=== PATIENT | male | born 1965 | race Caucasian/White ===

== ENCOUNTER 2017-11-03 09:17 | Emergency (ER) | payer SELFPAY ==
[2017-11-03] MEDS: ORPHENADRINE CITRATE 60 MG/2 ML VIAL. IM (09:43)
[2017-11-03] MEDS: KETOROLAC 60 MG/2 ML INJ. IM (09:44)
== END 2017-11-03 10:15 | disposition home or self-care (01) ==
LOC: ER 09:17
DX: M54.32 Sciatica, left side (principal); J43.9 Emphysema, unspecified; Z87.01 Personal history of pneumonia (recurrent)
CPT/HCPCS: 96372; 99284-25; J1885; J2360

== ENCOUNTER 2018-03-18 12:25 | Emergency (ER) | payer SELFPAY ==
[2018-03-18] MEDS: LIDOCAINE WITH 8.4% SOD BICARB 3 ML DISP.SYRIN. INJ (13:13)
[2018-03-18] MEDS: DIPHTH,PERTUSS(ACELL),TET TOX 0.5 ML DISP.SYRIN. VAX IM (13:14)
== END 2018-03-18 13:54 | disposition home or self-care (01) ==
LOC: ER 12:25
DX: S61.412A Laceration without foreign body of left hand, initial encounter (principal); W26.9XXA Contact with unspecified sharp object(s), initial encounter; Y93.89 Activity, other specified; Y99.8 Other external cause status; Y92.89 Other specified places as the place of occurrence of the external cause
CPT/HCPCS: 12002; 90471; 90472; 90715; 99283-25

== ENCOUNTER 2018-08-20 09:38 | Inpatient (IN) | payer SELFPAY ==
[~2018-08-20] VITALS: Ht 182.9 cm; Wt 65.8 kg
[~2018-08-20 09:38] MED LIST: ALBU2.5V14 NEB; AMOX500T PO; HYDR-971 PO; MOME13HF2 IH; PRED-220 PO; SULF1TAB24 PO; VENTOLIN HFA18 GM INH
[2018-08-20] MEDS ORDERED: IV NORMAL SALINE 1000ML BAG 1,000 ML IV ONE (09:45)
[2018-08-20] MEDS ORDERED: ALBUTEROL SULFATE 2.5 MG/3 ML NEBU. CONT NEB ONE (09:45)
[2018-08-20] MEDS ORDERED: methylPREDNISolone SOD SUCC PF 125 MG/2 ML VIAL. IV ONE ×2 (09:45→18:30)
--- NOTE | 2018-08-20 10:07 | RAD ---
Portable chest, 08/20/2018: HISTORY: Shortness of breath, COPD Comparison is made to a study from 07/25/2016. The heart size is normal. There are mild scattered parenchymal scars. No acute infiltrate is seen. There is no evidence of pleural fluid or pneumothorax. IMPRESSION: No acute cardiopulmonary abnormality is detected. Electronically signed by: Ba Jara MD (08/20/2018 10:03 AM) [facility]
--- NOTE | 2018-08-20 10:11 | EKG ---
[facility] [address] [place] [address] Test Date: 2018-08-20 Test Time: 09:44:17 Pat Name: KATIE HERNANDEZ Department: Room: Gender: M Endoscopy Tech: : 1965 Requested By: CARMINA RYAN Order Number: [id number] Reading MD: Kendell Ratliff MD Measurements Intervals [place] Rate: 79 P: -45 FL: 98 QRS: 77 QRSD: 92 T: 41 QT: 376 QTc: 432 Interpretive Statements SINUS RHYTHM SHORT FL INTERVAL Electronically Signed On 08-22-2018 9:40:49 CDT by Kendell Ratliff MD
[2018-08-20 10:12] LABS: BASO % 0 % (0-3); EOS # 0.4 x10^3/uL (0.0-0.7); EOS % 5 % (0-3); HEMATOCRIT 43.1 % (39.0-53.0); HEMOGLOBIN 15.2 g/dL (13.0-17.5); LYMPH # 0.9 x10^3/uL (1.0-4.8); LYMPH % 12 % (24-48); MEAN CORPUSCULAR HEMOGLOBIN 31 pg (25-35); MEAN CORPUSCULAR HGB CONC 35 g/dL (31-37); MEAN CORPUSCULAR VOLUME 89 fL (79-100); MONO # 0.9 x10^3/uL (0.0-1.1); MONO % 12 % (0-9); NEUT # 5.1 x10^3uL (1.8-7.7); NEUT % 70 % (31-73); PLATELET COUNT 217 x10^3/uL (140-400); RED BLOOD COUNT 4.86 x10^6/uL (4.30-5.70); RED CELL DISTRIBUTION WIDTH 13.5 % (11.5-14.5); WHITE BLOOD COUNT 7.2 x10^3/uL (4.0-11.0)
[2018-08-20 10:21] LABS: CREATININE 1.1 mg/dL (0.7-1.3); GFR 69.5; POTASSIUM 3.7 mmol/L (3.5-5.1)
[2018-08-20 10:27] LABS: ALBUMIN 3.6 g/dL (3.4-5.0); ALBUMIN/GLOBULIN RATIO 1.1 (1.0-1.7); TOTAL BILIRUBIN 0.8 mg/dL (0.2-1.0); TOTAL PROTEIN 6.8 g/dL (6.4-8.2)
[2018-08-20 10:37] LABS: BASE EXCESS COOX 1 mmol/L (-3-3); HCO3 COOX 24 mmol/L (21-28); METHEMOGLOBIN 0.4 % (0.0-1.9); PCO2 COOX 33 mmHg (35-46); PO2 COOX 82 mmHg (75-108); SAT O2 COOX 97 % (92-99)
[2018-08-20 10:56] LABS: INFLUENZA A PATIENT NEGATIVE (NEGATIVE); INFLUENZA B PATIENT NEGATIVE (NEGATIVE)
[2018-08-20] MEDS ORDERED: levOFLOXacin PER PHARMACY. MC PRN (11:45)
[2018-08-20] MEDS ORDERED: IPRATRPIUM/ALBUTEROL 0.5/2.5MG 3 ML NEBU. NEB ONE (12:00)
[2018-08-20 13:22] LABS: BILIRUBIN,URINE NEGATIVE (NEG); CLARITY,URINE CLEAR; COLOR,URINE YELLOW; NITRITE,URINE NEGATIVE (NEG); PROTEIN,URINE NEGATIVE (NEG-TRACE)
[2018-08-20 13:23] LABS: BACTERIA,URINE 0 /HPF (0-FEW); RBC,URINE OCC /HPF (0-2); SQUAMOUS EPITHELIAL CELL,UR FEW /LPF; WBC,URINE OCC /HPF (0-4)
[2018-08-20 15:00] VITALS: BP 114/79
--- NOTE | 2018-08-20 15:42 | PHYS DOC ---
Past Medical History Past Medical History: COPD, Pneumonia, Other Additional Past Medical Histor: chest pain,emphysema Past Surgical History: Other Additional Past Surgical Histo: hernia, left finger amputation Alcohol Use: Rarely Drug Use: None Adult General Chief Complaint Chief Complaint: SHORTNESS OF BREATH HPI HPI Patient is a 53 year old male who presents with shortness of air that has been worsening over the past week. The patient came in with significant respiratory distress. He does have history of COPD. He had used his at home medications with no relief. He denies chest pain but does state that he has been febrile at home. Review of Systems Review of Systems Constitutional: See history of present illness Eyes: Denies change in visual acuity, redness, or eye pain [] HENT: Denies nasal congestion or sore throat [] Respiratory: See history of present illness Cardiovascular: No additional information not addressed in HPI [] GI: Denies abdominal pain, nausea, vomiting, bloody stools or diarrhea [] : Denies dysuria or hematuria [] Musculoskeletal: Denies back pain or joint pain [] Integument: Denies rash or skin lesions [] Neurologic: Denies headache, focal weakness or sensory changes [] Endocrine: Denies polyuria or polydipsia [] All other systems were reviewed and found to be within normal limits, except as documented in this note. Current Medications Current Medications Current Medications Medications (Trade) Dose Ordered Sig/Dorothea Start Time Stop Time Status Last Admin Dose Admin Albuterol Sulfate (Ventolin Neb Soln) 10 mg 1X ONCE 08/20/18 09:45 08/20/18 09:51 DC 08/20/18 10:08 10 MG Albuterol/ Ipratropium (Duoneb) 3 ml 1X ONCE 08/20/18 12:00 08/20/18 12:01 DC 08/20/18 11:56 3 ML Levofloxacin/ Dextrose 100 ml @ 100 mls/hr Q24H 08/20/18 12:00 08/20/18 11:48 100 MLS/HR Levofloxacin/ Dextrose (Levaquin Per Pharmacy) 1 each PRN DAILY PRN 08/20/18 11:45 Methylprednisolone Sodium Succinate (SOLU-Medrol 125MG VIAL) 125 mg 1X ONCE 08/20/18 09:45 08/20/18 09:51 DC 08/20/18 10:12 125 MG Sodium Chloride 1,000 ml @ 1,000 mls/hr 1X ONCE 08/20/18 09:45 08/20/18 10:44 DC 08/20/18 10:12 1,000 MLS/HR Allergies Allergies Allergies Coded Allergies Type Severity Reaction Last Updated Verified No Known Drug Allergies 12/22/14 No Physical Exam Physical Exam Constitutional: Well developed, well nourished, no acute distress, non-toxic appearance. [] HENT: Normocephalic, atraumatic, bilateral external ears normal, oropharynx moist, no oral exudates, nose normal. [] Eyes: PERRLA, EOMI, conjunctiva normal, no discharge. [] Neck: Normal range of motion, no tenderness, supple, no stridor. [] Cardiovascular:Heart rate regular rhythm, no murmur [] Lungs & Thorax: Bilateral breath sounds coarse with strong expiratory wheezes noted throughout all fernandez Abdomen: Bowel sounds normal, soft, no tenderness, no masses, no pulsatile masses. [] Skin: Warm, dry, no erythema, no rash. [] Back: No tenderness, no CVA tenderness. [] Extremities: No tenderness, no cyanosis, no clubbing, ROM intact, no edema. [] Neurologic: Alert and oriented X 3, normal motor function, normal sensory function, no focal deficits noted. [] Psychologic: Affect normal, judgement normal, mood normal. [] Current Patient Data Vital Signs Vital Signs Date Time Temp Pulse Resp B/P (MAP) Pulse Ox O2 Delivery O2 Flow Rate FiO2 08/20/18 13:00 84 15 117/82 (94) 96 Room Air 08/20/18 09:49 98.1 98.1 Lab Values Laboratory Tests Test 08/20/18 10:00 08/20/18 10:10 08/20/18 10:30 08/20/18 12:22 White Blood Count 7.2 x10^3/uL (4.0-11.0) Red Blood Count 4.86 x10^6/uL (4.30-5.70) Hemoglobin 15.2 g/dL (13.0-17.5) Hematocrit 43.1 % (39.0-53.0) Mean Corpuscular Volume 89 fL (79-100) Mean Corpuscular Hemoglobin 31 pg (25-35) Mean Corpuscular Hemoglobin Concent 35 g/dL (31-37) Red Cell Distribution Width 13.5 % (11.5-14.5) Platelet Count 217 x10^3/uL (140-400) Neutrophils (%) (Auto) 70 % (31-73) Lymphocytes (%) (Auto) 12 % (24-48) L Monocytes (%) (Auto) 12 % (0-9) H Eosinophils (%) (Auto) 5 % (0-3) H Basophils (%) (Auto) 0 % (0-3) Neutrophils # (Auto) 5.1 x10^3uL (1.8-7.7) Lymphocytes # (Auto) 0.9 x10^3/uL (1.0-4.8) L Monocytes # (Auto) 0.9 x10^3/uL (0.0-1.1) Eosinophils # (Auto) 0.4 x10^3/uL (0.0-0.7) Basophils # (Auto) 0.0 x10^3/uL (0.0-0.2) Sodium Level 141 mmol/L (136-145) Potassium Level 3.7 mmol/L (3.5-5.1) Chloride Level 104 mmol/L (98-107) Carbon Dioxide Level 26 mmol/L (21-32) Anion Gap 11 (6-14) Blood Urea Nitrogen 13 mg/dL (8-26) Creatinine 1.1 mg/dL (0.7-1.3) Estimated GFR (Cockcroft-Gault) 69.5 BUN/Creatinine Ratio 12 (6-20) Glucose Level 109 mg/dL (70-99) H Lactic Acid Level 1.2 mmol/L (0.4-2.0) Calcium Level 9.0 mg/dL (8.5-10.1) Total Bilirubin 0.8 mg/dL (0.2-1.0) Aspartate Amino Transferase (AST) 21 U/L (15-37) Alanine Aminotransferase (ALT) 19 U/L (16-63) Alkaline Phosphatase 47 U/L (46-116) Total Protein 6.8 g/dL (6.4-8.2) Albumin 3.6 g/dL (3.4-5.0) Albumin/Globulin Ratio 1.1 (1.0-1.7) O2 Saturation 97 % (92-99) Arterial Blood pH 7.47 (7.35-7.45) H Arterial Blood pCO2 at Patient Temp 33 mmHg (35-46) L Arterial Blood pO2 at Patient Temp 82 mmHg (75-108) Arterial Blood HCO3 24 mmol/L (21-28) Arterial Blood Base Excess 1 mmol/L (-3-3) Oxyhemoglobin 96.0 % Methemoglobin 0.4 % (0.0-1.9) Carbon Monoxide, Quantitative 0.3 % (0.0-1.9) FiO2 21 Influenza Type A Antigen Negative (NEGATIVE) Influenza Type B Antigen Negative (NEGATIVE) Urine Collection Type Unknown Urine Color Yellow Urine Clarity Clear Urine pH 6.0 Urine Specific [place] 1.025 Urine Protein Negative mg/dL (NEG-TRACE) Urine Glucose (UA) Negative mg/dL (NEG) Urine Ketones (Stick) 15 mg/dL (NEG) Urine Blood Negative (NEG) Urine Nitrite Negative (NEG) Urine Bilirubin Negative (NEG) Urine Urobilinogen Dipstick 1.0 mg/dL (0.2 mg/dL) Urine Leukocyte Esterase Negative (NEG) Urine RBC Occ /HPF (0-2) Urine WBC Occ /HPF (0-4) Urine Squamous Epithelial Cells Few /LPF Urine Bacteria 0 /HPF (0-FEW) Urine Mucus Mod /LPF Laboratory Tests 08/20/18 10:00 Laboratory Tests 08/20/18 10:00 EKG EKG [] Radiology/Procedures Radiology/Procedures []PATIENT: KATIE HERNANDEZ GACCOUNT: [id number]#: [id number] : 1965 LOCATION: ER AGE: 53 SEX: M EXAM STATUS: REG ER ORD. PHYSICIAN: CARMINA RYAN APRN REASON: soa x 2 days PROCEDURE: CHEST AP ONLY Portable chest, 08/20/2018: HISTORY: Shortness of breath, COPD Comparison is made to a study from 07/25/2016. The heart size is normal. There are mild scattered parenchymal scars. No acute infiltrate is seen. There is no evidence of pleural fluid or pneumothorax. IMPRESSION: No acute cardiopulmonary abnormality is detected. Electronically signed by: Ba Jara MD (08/20/2018 10:03 AM) [facility] DICTATED and SIGNED BY: BA JARA MD DATE: 08/20/18 1001 Course & Med Decision Making Course & Med Decision Making Pertinent Labs and Imaging studies reviewed. (See chart for details) []The patient was given an hour-long albuterol treatment in the emergency Department as well as 125 mg of Solu-Medrol IV. He still had coarse breath sounds and a DuoNeb treatment was administered. The do dip did help lighten the coarseness and has decreased his work of breathing. He is still coughing up extensive amounts of white sputum. A sputum sample was sent to lab for testing. The patient was given that dose of Levaquin in the emergency department. While the patient does feel like he has slightly improved since his hospital stay he does still have some coarse breath sounds and mild wheezing. He is still feeling weak and agrees that admission would be the safest course. The patient will be admitted to Dr. Ortega's service. Dragon Disclaimer Dragon Disclaimer This electronic medical record was generated, in whole or in part, using a voice recognition dictation system. Departure Departure Impression: Primary Impression: COPD exacerbation Disposition: ADMITTED INPATIENT Admitting Physician: Brandon Ortega Condition: GOOD Referrals: ANDREW GUADALUPE PA-C (PCP) CARMINA RYAN APRN Aug 20, 2018 15:42
[2018-08-20] MEDS ORDERED: TAMS0.4C97 PO (16:58)
[2018-08-20 19:00] VITALS: BP 118/79
[2018-08-20] MEDS ORDERED: ALBUTEROL SULFATE 2.5 MG/3 ML NEBU. NEB SCH (20:00)
[2018-08-20] MEDS: IPRATRPIUM/ALBUTEROL 0.5/2.5MG 3 ML NEBU. NEB SCH (20:36)
[2018-08-20] MEDS: BUDESONIDE 0.5 MG/2 ML NEBU. NEB SCH (20:36)
[2018-08-20] MEDS: methylPREDNISolone SOD SUCC PF 125 MG/2 ML VIAL. IV SCH (21:05)
[2018-08-20] MEDS: IBUPROFEN 400 MG TABLET. PO PRN (21:26)
[2018-08-20] MEDS ORDERED: ALBUTEROL SULFATE 2.5 MG/3 ML NEBU. NEB PRN (22:30)
[2018-08-20 23:00] VITALS: BP 111/66
[2018-08-21 03:00] VITALS: BP 117/81
[2018-08-21] MEDS: IBUPROFEN 400 MG TABLET. PO PRN (06:34)
[2018-08-21 07:00] VITALS: BP 115/80
[2018-08-21] MEDS: BUDESONIDE 0.5 MG/2 ML NEBU. NEB SCH (07:28)
[2018-08-21] MEDS: IPRATRPIUM/ALBUTEROL 0.5/2.5MG 3 ML NEBU. NEB SCH (07:28)
[2018-08-21] MEDS: methylPREDNISolone SOD SUCC PF 125 MG/2 ML VIAL. IV SCH (08:41)
--- NOTE | 2018-08-21 08:43 | DISCH ---
DISCHARGE INSTRUCTIONS Condition on Discharge Condition on Discharge: Stable Activity After Discharge Activity Instructions for Disc: Activity as tolerated Diet after Discharge Diet after Discharge: Cardiac, Regular Diet Texture: Regular Liquid Texture: Thin Liquid Swallowing Supervision: None needed Wound Incision Care Wound/Incision Care: No wound care needed Follow-Up Follow up with: prn Treatment/Equipment after DC Adaptive Equipment Issued: None MARY CHAPMAN MD Aug 21, 2018 08:43
--- NOTE | 2018-08-21 08:48 | PDOC ---
Provider Note Provider Note [id number] MARY CHAPMAN MD Aug 21, 2018 08:48
[2018-08-21] MEDS ORDERED: predniSONE 20 MG TABLET PO ONE (09:00)
[2018-08-21] MEDS ORDERED: LACTOBACILLUS RHAMNOSUS GG 1 CAPSULE. PO SCH (09:00)
[2018-08-21] MEDS ORDERED: TAMSULOSIN 0.4 MG CAP.ER.24H. PO SCH (09:00)
[2018-08-21] MEDS ORDERED: PANTOPRAZOLE 40 MG TABLET.DR. PO SCH (09:30)
--- NOTE | 2018-08-21 10:32 | SSS ---
ADMIT DATE: 08/21/2018 A 23-HOUR NOTE HOSPITAL SUMMARY: A 53-year-old white male with severe COPD, quit smoking several years ago, but has had an increased cough, sputum production, fever, chills and general malaise. Chest x-ray was clear. CBC and chemistry profile were normal. He was given IV Levaquin and IV Solu-Medrol in the ER and is feeling much better and comfortable to be followed as an outpatient at this point. FINAL DIAGNOSIS: Acute exacerbation of chronic obstructive pulmonary disease. OPERATIONS, PROCEDURES, COMPLICATIONS AND CONSULTATIONS: None. DISPOSITION: Discharged to home on Levaquin 500 mg 1 daily for 1 week, prednisone 50 mg 1 daily for 5 days. He is up-to-date on flu and pneumonia vaccines. ACTIVITY: As tolerated. FOLLOWUP: Office followup on a p.r.n. basis. MARY CHAPMAN MD DR: VICENTE/ike JOB#: [id number] / [id number]
== END 2018-08-21 09:50 | disposition home or self-care (01) | DRG 192 ==
LOC: ER 09:38 → 5 NORTH 13:05
PROVIDERS: ADMIT Family Medicine; ATTEND Family Medicine
DX: J44.1 Chronic obstructive pulmonary disease with (acute) exacerbation (principal); R06.03 Acute respiratory distress
CPT/HCPCS: 36415; 36600; 71045; 80053; 81001; 82805; 83605; 85025; 87070; 87205; 87804; 93005; 94640; 94644; 94760; 96361; 96365; 96366; 96375; J1956; J2930; J7030; J7512; J7613; J7620; J7626; 99285-25

== ENCOUNTER 2018-11-02 10:35 | Emergency (ER) | payer OTHER ==
[~2018-11-02] VITALS: Ht 182.9 cm; Wt 65.8 kg
[~2018-11-02 10:35] MED LIST changes: +HYDR-3164 PO; -HYDR-971 PO; +TAMS0.4C97 PO
[2018-11-02] MEDS ORDERED: ONDANSETRON PF 4 MG/2 ML VIAL. IV ONE (11:30)
[2018-11-02] MEDS ORDERED: MORPHINE SULFATE 4 MG/ML VIAL. IV ONE (11:30)
--- NOTE | 2018-11-02 11:40 | RAD ---
CHEST AP ONLY History: CHEST PAIN. Comparison: 08/20/2018 Cardiomediastinal silhouette: Not grossly enlarged. Lungs: No focal airspace consolidation. Pleura: No evidence of pleural effusion. Pneumothorax: None visualized Support Devices: None. Impression: No acute radiographic findings. Electronically signed by: King Arora MD (11/02/2018 11:35 AM) [facility]
[2018-11-02 11:57] LABS: CREATININE 1.1 mg/dL (0.7-1.3); GFR 69.5; POTASSIUM 4.2 mmol/L (3.5-5.1)
[2018-11-02 11:59] LABS: BASO % 0 % (0-3); EOS # 0.2 x10^3/uL (0.0-0.7); EOS % 3 % (0-3); HEMATOCRIT 41.7 % (39.0-53.0); HEMOGLOBIN 14.8 g/dL (13.0-17.5); LYMPH # 1.3 x10^3/uL (1.0-4.8); LYMPH % 21 % (24-48); MEAN CORPUSCULAR HEMOGLOBIN 32 pg (25-35); MEAN CORPUSCULAR HGB CONC 36 g/dL (31-37); MEAN CORPUSCULAR VOLUME 89 fL (79-100); MONO # 0.9 x10^3/uL (0.0-1.1); MONO % 14 % (0-9); NEUT # 3.9 x10^3uL (1.8-7.7); NEUT % 62 % (31-73); PLATELET COUNT 399 x10^3/uL (140-400); RED CELL DISTRIBUTION WIDTH 13.1 % (11.5-14.5); WHITE BLOOD COUNT 6.2 x10^3/uL (4.0-11.0)
[2018-11-02 12:03] LABS: ALBUMIN 2.9 g/dL (3.4-5.0); ALBUMIN/GLOBULIN RATIO 0.7 (1.0-1.7); TOTAL BILIRUBIN 0.5 mg/dL (0.2-1.0); TOTAL PROTEIN 7.1 g/dL (6.4-8.2)
--- NOTE | 2018-11-02 12:26 | EKG ---
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
--- NOTE | 2018-11-02 12:49 | PHYS DOC ---
Past Medical History Past Medical History: COPD, Pneumonia, Other Additional Past Medical Histor: chest pain,emphysema Past Surgical History: Other Additional Past Surgical Histo: hernia, left finger amputation Alcohol Use: Rarely Drug Use: None Adult General Chief Complaint Chief Complaint: RIB PAIN [facility] HPI Patient is a 53 year old male [with history of COPD who presents with acute left-sided chest wall pain. Symptom onset was yesterday. Pain is described as sharp, stabbing worse with deep breathing and movement. Ports recent respiratory tract illness which has since improved. Patient also reports bowling yesterday which may caused him to strain a muscle. Fevers chills, nausea vomiting or sweats. No streaking of DVT or PE. No other acute complaints. [] Review of Systems Review of Systems ROS as per HPI. All other systems were reviewed and found to be within normal limits, except as documented in this note. Current Medications Current Medications Current Medications Medications (Trade) Dose Ordered Sig/Dorothea Start Time Stop Time Status Last Admin Dose Admin Morphine Sulfate (Morphine Sulfate) 4 mg 1X ONCE 11/02/18 11:30 11/02/18 11:31 DC 11/02/18 11:38 4 MG Ondansetron HCl (Zofran) 4 mg 1X ONCE 11/02/18 11:30 11/02/18 11:31 DC 11/02/18 11:37 4 MG Allergies Allergies Allergies Coded Allergies Type Severity Reaction Last Updated Verified No Known Drug Allergies 12/22/14 No Physical Exam Physical Exam Constitutional: Well developed, well nourished, no acute distress, non-toxic appearance. [] HENT: Normocephalic, atraumatic, bilateral external ears normal,nose normal. [] Eyes: PERRLA, EOMI, conjunctiva normal. [] Neck: Normal range of motion, no tenderness. [] Cardiovascular:Heart rate regular rhythm, no murmur, negative Homans sign.[] Lungs & Thorax: Barrel chested, respirations nonlabored, diminished breath sounds bilaterally, Bilateral breath sounds clear to auscultation. [] Abdomen: Bowel sounds normal. [] Skin: Warm, no rash. [] Back: No tenderness. [] Extremities: No tenderness, no edema. [] Neurologic: Alert and oriented X 3, normal motor function, normal sensory function, no focal deficits noted. [] Psychologic: Affect normal, judgement normal, mood normal. [] Current Patient Data Vital Signs Vital Signs Date Time Temp Pulse Resp B/P (MAP) Pulse Ox O2 Delivery O2 Flow Rate FiO2 11/02/18 12:45 16 99 Room Air 11/02/18 12:40 72 110/85 (93) 11/02/18 10:37 98.6 98.6 Lab Values Laboratory Tests Test 11/02/18 11:29 White Blood Count 6.2 x10^3/uL (4.0-11.0) Red Blood Count 4.70 x10^6/uL (4.30-5.70) Hemoglobin 14.8 g/dL (13.0-17.5) Hematocrit 41.7 % (39.0-53.0) Mean Corpuscular Volume 89 fL (79-100) Mean Corpuscular Hemoglobin 32 pg (25-35) Mean Corpuscular Hemoglobin Concent 36 g/dL (31-37) Red Cell Distribution Width 13.1 % (11.5-14.5) Platelet Count 399 x10^3/uL (140-400) Neutrophils (%) (Auto) 62 % (31-73) Lymphocytes (%) (Auto) 21 % (24-48) L Monocytes (%) (Auto) 14 % (0-9) H Eosinophils (%) (Auto) 3 % (0-3) Basophils (%) (Auto) 0 % (0-3) Neutrophils # (Auto) 3.9 x10^3uL (1.8-7.7) Lymphocytes # (Auto) 1.3 x10^3/uL (1.0-4.8) Monocytes # (Auto) 0.9 x10^3/uL (0.0-1.1) Eosinophils # (Auto) 0.2 x10^3/uL (0.0-0.7) Basophils # (Auto) 0.0 x10^3/uL (0.0-0.2) D-Dimer (Lety) 0.49 ug/mlFEU (0.00-0.50) Sodium Level 139 mmol/L (136-145) Potassium Level 4.2 mmol/L (3.5-5.1) Chloride Level 102 mmol/L (98-107) Carbon Dioxide Level 31 mmol/L (21-32) Anion Gap 6 (6-14) Blood Urea Nitrogen 12 mg/dL (8-26) Creatinine 1.1 mg/dL (0.7-1.3) Estimated GFR (Cockcroft-Gault) 69.5 BUN/Creatinine Ratio 11 (6-20) Glucose Level 84 mg/dL (70-99) Calcium Level 9.0 mg/dL (8.5-10.1) Total Bilirubin 0.5 mg/dL (0.2-1.0) Aspartate Amino Transferase (AST) 14 U/L (15-37) L Alanine Aminotransferase (ALT) 14 U/L (16-63) L Alkaline Phosphatase 44 U/L (46-116) L Troponin I Quantitative < 0.017 ng/mL (0.000-0.055) Total Protein 7.1 g/dL (6.4-8.2) Albumin 2.9 g/dL (3.4-5.0) L Albumin/Globulin Ratio 0.7 (1.0-1.7) L Laboratory Tests 11/02/18 11:29 Laboratory Tests 11/02/18 11:29 EKG EKG [EKG: NSR, no acute ST T wave changes.] Radiology/Procedures Radiology/Procedures CXR: NAD[] Course & Med Decision Making Course & Med Decision Making Pertinent Labs and Imaging studies reviewed. (See chart for details) [Pleuritic left-sided chest wall pain reproduces and exam. Pain improved with treatment. Vital signs remained stable, EKG, lab and imaging are nondiagnostic. Suspect pleurisy secondary to recent upper respiratory tract infection versus early pneumonia. Other causes of chest pain considered, but thought less likely. No additional imaging studies indicated at this time. Will treat supportively with close PCP follow-up. Return precautions reviewed] Dragon Disclaimer Dragon Disclaimer This electronic medical record was generated, in whole or in part, using a voice recognition dictation system. Departure Departure Impression: Primary Impression: Chest wall pain Additional Impression: COPD (chronic obstructive pulmonary disease) Disposition: 01 HOME, SELF-CARE Condition: GOOD Referrals: ANDREW GUADALUPE PA-C (PCP) Patient Instructions: Chest Wall Pain, [id number] Additional Instructions: You were evaluated emergency department for chest wall pain. Lab, imaging and EKG were performed and are nondiagnostic. The exact cause of your symptoms has not been determined. Please take newly prescribed medications as directed and follow-up with your PCP in 3-5 days for reevaluation. If you develop new or worsening symptoms, please return to the emergency department. Scripts Hydrocodone/Apap 5-325 (NORCO 5-325 TABLET) 1 Each Tablet 1 TAB PO TID, #12 TAB Prov: DEON LEW DO 11/02/18 Prednisone (PREDNISONE) 50 Mg Tablet 1 TAB PO DAILY, #5 TAB Prov: DEON LEW DO 11/02/18 Problem Qualifiers DEON LEW DO Nov 02, 2018 12:49
[2018-11-02] MEDS ORDERED: HYDR-3164 PO (13:30)
[2018-11-02] MEDS ORDERED: PRED50TA PO (13:30)
[2018-11-02] MEDS ORDERED: CEPH-264 PO (13:33)
[2018-11-02 13:40] VITALS: BP 126/101
== END 2018-11-02 13:45 | disposition home or self-care (01) ==
LOC: ER 10:35
DX: J44.9 Chronic obstructive pulmonary disease, unspecified (principal); R07.81 Pleurodynia
CPT/HCPCS: 36415; 71045; 80053; 84484; 85025; 85379; 93005; 96374; 96375; 99284; J2270; J2405

== ENCOUNTER 2019-01-11 18:40 | Emergency (ER) | payer OTHER ==
[~2019-01-11] VITALS: Ht 182.9 cm; Wt 65.8 kg
[~2019-01-11 18:40] MED LIST changes: +CEPH-264 PO; +PRED50TA PO
[2019-01-11] MEDS ORDERED: IV NORMAL SALINE 1000ML BAG 1,000 ML IV SCH (19:04)
[2019-01-11] MEDS ORDERED: ALBUTEROL SULFATE 2.5 MG/3 ML NEBU. NEB ONE (19:15)
[2019-01-11] MEDS ORDERED: IPRATRPIUM/ALBUTEROL 0.5/2.5MG 3 ML NEBU. NEB ONE (19:15)
[2019-01-11] MEDS ORDERED: methylPREDNISolone SOD SUCC PF 125 MG/2 ML VIAL. IV ONE (19:15)
--- NOTE | 2019-01-11 19:31 | PHYS DOC ---
Past Medical History Past Medical History: COPD, Pneumonia, Other Additional Past Medical Histor: chest pain,emphysema Past Surgical History: Other Additional Past Surgical Histo: hernia, left finger amputation Alcohol Use: Rarely Drug Use: None Adult General Chief Complaint Chief Complaint: SHORTNESS OF BREATH HPI HPI Patient is a 53 year old male who presents with shortness of breath. Patient has had flulike illness with nausea and vomiting as well as the shortness of breath that started yesterday. He has not taken any of his home breathing treatments. Patient is a former smoker stopping approximately 10 years ago. He has had a fever of up to 103. No blood in the emesis. Nothing seems to make the symptoms better. Oral intake seems to make them worse.[] Review of Systems Review of Systems Constitutional: See history of present illness[] Eyes: Denies change in visual acuity, redness, or eye pain [] HENT: Denies nasal congestion or sore throat [] Respiratory: See history of present illness[] Cardiovascular: No chest pain or palpitations[] GI: See history of present illness[] : Denies dysuria or hematuria [] Musculoskeletal: Denies back pain or joint pain [] Integument: Denies rash or skin lesions [] Neurologic: Denies headache, focal weakness or sensory changes [] Endocrine: Denies polyuria or polydipsia [] All other systems were reviewed and found to be within normal limits, except as documented in this note. Current Medications Current Medications Current Medications Medications (Trade) Dose Ordered Sig/Dorothea Start Time Stop Time Status Last Admin Dose Admin Albuterol Sulfate (Ventolin Neb Soln) 2.5 mg 1X ONCE 01/11/19 19:15 01/11/19 19:16 DC 01/11/19 19:19 2.5 MG Albuterol/ Ipratropium (Duoneb) 3 ml 1X ONCE 01/11/19 19:15 01/11/19 19:16 DC 01/11/19 19:18 3 ML Methylprednisolone Sodium Succinate (SOLU-Medrol 125MG VIAL) 125 mg 1X ONCE 01/11/19 19:15 01/11/19 19:16 DC 01/11/19 19:31 125 MG Sodium Chloride 1,000 ml @ 1,000 mls/hr Q1H 01/11/19 19:04 01/11/19 20:03 DC 01/11/19 19:30 1,000 MLS/HR Allergies Allergies Allergies Coded Allergies Type Severity Reaction Last Updated Verified No Known Drug Allergies 12/22/14 No Physical Exam Physical Exam Constitutional: Well developed, well nourished, no acute distress, non-toxic appearance. [] HENT: Normocephalic, atraumatic, bilateral external ears normal, oropharynx moist, no oral exudates, nose normal. [] Eyes: PERRLA, EOMI, conjunctiva normal, no discharge. [] Neck: Normal range of motion, no tenderness, supple, no stridor. [] Cardiovascular:Heart rate regular rhythm, no murmur [] Lungs & Thorax: Bilateral breath sounds with inspiratory and expiratory wheezes [] Abdomen: Bowel sounds normal, soft, no tenderness, no masses, no pulsatile masses. [] Skin: Warm, dry, no erythema, no rash. [] Back: No tenderness, no CVA tenderness. [] Extremities: No tenderness, no cyanosis, no clubbing, ROM intact, no edema. [] Neurologic: Alert and oriented X 3, normal motor function, normal sensory function, no focal deficits noted. [] Psychologic: Affect normal, judgement normal, mood normal. [] Current Patient Data Vital Signs Vital Signs Date Time Temp Pulse Resp B/P (MAP) Pulse Ox O2 Delivery O2 Flow Rate FiO2 01/11/19 19:20 96 01/11/19 18:50 99.5 112 20 94/69 (77) Room Air 99.5 Lab Values Laboratory Tests Test 01/11/19 19:00 01/11/19 19:10 Influenza Type A Antigen Positive (NEGATIVE) Influenza Type B Antigen Negative (NEGATIVE) White Blood Count 8.5 x10^3/uL (4.0-11.0) Red Blood Count 4.94 x10^6/uL (4.30-5.70) Hemoglobin 14.8 g/dL (13.0-17.5) Hematocrit 43.5 % (39.0-53.0) Mean Corpuscular Volume 88 fL (79-100) Mean Corpuscular Hemoglobin 30 pg (25-35) Mean Corpuscular Hemoglobin Concent 34 g/dL (31-37) Red Cell Distribution Width 13.7 % (11.5-14.5) Platelet Count 264 x10^3/uL (140-400) Neutrophils (%) (Auto) 82 % (31-73) H Lymphocytes (%) (Auto) 8 % (24-48) L Monocytes (%) (Auto) 10 % (0-9) H Eosinophils (%) (Auto) 0 % (0-3) Basophils (%) (Auto) 0 % (0-3) Neutrophils # (Auto) 6.9 x10^3uL (1.8-7.7) Lymphocytes # (Auto) 0.7 x10^3/uL (1.0-4.8) L Monocytes # (Auto) 0.9 x10^3/uL (0.0-1.1) Eosinophils # (Auto) 0.0 x10^3/uL (0.0-0.7) Basophils # (Auto) 0.0 x10^3/uL (0.0-0.2) Sodium Level 136 mmol/L (136-145) Potassium Level 3.9 mmol/L (3.5-5.1) Chloride Level 99 mmol/L (98-107) Carbon Dioxide Level 25 mmol/L (21-32) Anion Gap 12 (6-14) Blood Urea Nitrogen 13 mg/dL (8-26) Creatinine 1.1 mg/dL (0.7-1.3) Estimated GFR (Cockcroft-Gault) 69.5 BUN/Creatinine Ratio 12 (6-20) Glucose Level 105 mg/dL (70-99) H Calcium Level 8.6 mg/dL (8.5-10.1) Total Bilirubin 0.4 mg/dL (0.2-1.0) Aspartate Amino Transferase (AST) 19 U/L (15-37) Alanine Aminotransferase (ALT) 13 U/L (16-63) L Alkaline Phosphatase 42 U/L (46-116) L Troponin I Quantitative < 0.017 ng/mL (0.000-0.055) [id number]-Type Natriuretic Peptide 141 pg/mL (0-124) H Total Protein 7.2 g/dL (6.4-8.2) Albumin 3.3 g/dL (3.4-5.0) L Albumin/Globulin Ratio 0.8 (1.0-1.7) L Laboratory Tests 01/11/19 19:10 Laboratory Tests 3/16/19 19:10 EKG EKG EKG shows sinus tachycardia at 101 bpm, normal axis, normal QTC, no ST elevations. Interpreted by me at 1920[] Radiology/Procedures Radiology/Procedures Chest x-ray shows no infiltrate, no effusion, no pneumothorax[] Course & Med Decision Making Course & Med Decision Making Pertinent Labs and Imaging studies reviewed. (See chart for details) ED course: Patient arrived, was placed in bed, and tolerated exam well. He was given IV fluids for his tachycardia with his nausea and vomiting. He was additionally given breathing treatments which improved his breath sounds that were clear after the breathing treatment. After the return of lab and imaging findings, these were discussed with the patient and family voiced understanding. All questions were answered. Patient was discharged in improved condition. Medical decision making: Patient appears to have influenza, no evidence of hypoxia, status asthmaticus/COPD exacerbation with hypoxia. No evidence of an acute coronary syndrome nor CHF. No evidence of oral intake intolerance. No evidence of significant electrolyte abnormality[] Dragon Disclaimer Dragon Disclaimer This electronic medical record was generated, in whole or in part, using a voice recognition dictation system. Departure Departure Impression: Primary Impression: COPD exacerbation Additional Impressions: Influenza A Nausea and vomiting Disposition: HOME, SELF-CARE Condition: IMPROVED Referrals: ANDREW GUADALUPE PA-C (PCP) Follow-up in 2 days Patient Instructions: Chronic Obstructive Pulmonary Disease Exacerbation, Influenza, Adult, Nausea and Vomiting Additional Instructions: Drink plenty of fluids, frequent small sips. No fatty foods, no milk, and no pepper for the next 48 hours. For the next 48 hours eat a diet rich in carbohydrates with foods such as bananas, rice, applesauce, and toast. Follow- up with your regular doctor in 2 days. Return to the ER if unable to tolerate liquids or any other concerns. Scripts Ondansetron Hcl (ZOFRAN) 4 Mg Tablet 4 MG PO PRN TID PRN for NAUSEA/VOMITING, #15 nausea/vomiting Prov: AKUA ESTRADA DO 01/11/19 Oseltamivir Phosphate (TAMIFLU) 75 Mg Capsule 1 CAP PO BID, #10 CAP Prov: AKUA ESTRADA DO 01/11/19 Prednisone (PREDNISONE) 50 Mg Tablet 50 MG PO DAILY for 7 Days, #7 TAB Prov: AKUA ESTRADA DO 3/16/19 Problem Qualifiers Additional Impressions: Nausea and vomiting Vomiting type: unspecified Vomiting Intractability: unspecified Qualified Codes: R11.2 - Nausea with vomiting, unspecified AKUA ESTRADA DO Jan 11, 2019 19:31
[2019-01-11 19:48] LABS: INFLUENZA A PATIENT POSITIVE (NEGATIVE); INFLUENZA B PATIENT NEGATIVE (NEGATIVE)
[2019-01-11 19:54] LABS: BASO % 0 % (0-3); EOS % 0 % (0-3); HEMATOCRIT 43.5 % (39.0-53.0); HEMOGLOBIN 14.8 g/dL (13.0-17.5); LYMPH # 0.7 x10^3/uL (1.0-4.8); LYMPH % 8 % (24-48); MEAN CORPUSCULAR HEMOGLOBIN 30 pg (25-35); MEAN CORPUSCULAR HGB CONC 34 g/dL (31-37); MEAN CORPUSCULAR VOLUME 88 fL (79-100); MONO # 0.9 x10^3/uL (0.0-1.1); MONO % 10 % (0-9); NEUT # 6.9 x10^3uL (1.8-7.7); NEUT % 82 % (31-73); PLATELET COUNT 264 x10^3/uL (140-400); RED BLOOD COUNT 4.94 x10^6/uL (4.30-5.70); RED CELL DISTRIBUTION WIDTH 13.7 % (11.5-14.5); WHITE BLOOD COUNT 8.5 x10^3/uL (4.0-11.0)
[2019-01-11 19:55] LABS: ALBUMIN 3.3 g/dL (3.4-5.0); ALBUMIN/GLOBULIN RATIO 0.8 (1.0-1.7); CALCIUM 8.6 mg/dL (8.5-10.1); CREATININE 1.1 mg/dL (0.7-1.3); GFR 69.5; POTASSIUM 3.9 mmol/L (3.5-5.1); TOTAL BILIRUBIN 0.4 mg/dL (0.2-1.0); TOTAL PROTEIN 7.2 g/dL (6.4-8.2)
--- NOTE | 2019-01-11 20:20 | RAD ---
PA and lateral chest. HISTORY: Cough, fever, short of breath PA and lateral views were taken of the chest. There is hyperexpansion suggesting chronic obstructive pulmonary disease. There are no infiltrates. There is no effusion. The heart is normal in size. There is a possible lung nodule on the right between the anterior third and fourth ribs versus superimposed structures. CT could be of benefit. IMPRESSION: 1. Hyperexpansion. 2. No acute infiltrates. 3. Possible right lung nodule. Electronically signed by: Shay Schuster MD (01/11/2019 8:17 PM) [id number]
[2019-01-11] MEDS ORDERED: PRED50TA PO (20:24)
[2019-01-11] MEDS ORDERED: OSEL75CA PO (20:24)
[2019-01-11] MEDS ORDERED: ONDA4TAB7 PO (20:24)
[2019-01-11 20:27] VITALS: BP 95/70
--- NOTE | 2019-01-12 14:10 | EKG ---
[facility] [address] [place] [address] Test Date: 2019-01-11 Test Time: 19:14:26 Pat Name: KATIE HERNANDEZ Department: Room: Gender: M Kennel Operator: : 1965 Requested By: KAUA ESTRADA Order Number: [id number] Reading MD: Kendell Ratliff MD Measurements Intervals [place] Rate: 101 P: -21 OR: 94 QRS: 85 QRSD: 84 T: 45 QT: 330 QTc: 429 Interpretive Statements SINUS TACHYCARDIA NON-SPECIFIC ST/T CHANGES Electronically Signed On 01-16-2019 15:03:51 CDT by Kendell Ratliff MD
== END 2019-01-11 20:37 | disposition home or self-care (01) ==
LOC: ER 18:40
DX: J10.1 Influenza due to other identified influenza virus with other respiratory manifestations (principal); J44.1 Chronic obstructive pulmonary disease with (acute) exacerbation; R11.2 Nausea with vomiting, unspecified; Z87.891 Personal history of nicotine dependence
CPT/HCPCS: 36415; 71046; 80053; 83880; 84484; 85025; 87040; 87804; 93005; 94640; 96361; 96374; 99284; J2930; J7030; J7613; J7620

== ENCOUNTER → 2019-07-30 | Outpatient (CLI) | payer OTHER ==
[~2019-07-30] MED LIST changes: +ONDA4TAB7 PO; +OSEL75CA PO
--- NOTE | 2019-07-30 12:50 | KCIC ---
EXAM: Right shoulder, 3 views. HISTORY: Pain. COMPARISON: None. FINDINGS: 3 views of the right shoulder obtained. There is no fracture, dislocation or subluxation. There is a tiny inferiorly directed distal clavicular spur. There is a suspected healed fifth rib fracture. IMPRESSION: No acute osseous finding. Electronically signed by: Cherie Cheng MD (07/30/2019 12:47 PM) [facility]
== END | disposition home or self-care (01) ==
LOC: KCIC 11:06
PROVIDERS: ATTEND Physician Assistant Medical
DX: M25.511 Pain in right shoulder (principal)
CPT/HCPCS: 73030

== ENCOUNTER → 2019-09-10 | Outpatient (CLI) | payer OTHER ==
--- NOTE | 2019-09-10 12:04 | KCIC ---
AP and Lateral Views of the Chest 09/10/2019 12:00 AM Indication: COPD. Comparison: Chest radiograph January 11, 2019 Findings: Changes of COPD including bilateral hyperinflation mild interstitial coarsening similar. No pneumothorax, pleural effusion, or focal infiltrate is seen. Heart size is normal. Bony thorax is intact. IMPRESSION: Stable changes COPD. Otherwise no acute cardiopulmonary process is identified. Electronically signed by: Vivek Mendoza MD (09/10/2019 12:00 PM) [id number]
== END | disposition home or self-care (01) ==
LOC: KCIC 11:18
PROVIDERS: ATTEND Internal Medicine Pulmonary Disease
DX: J44.9 Chronic obstructive pulmonary disease, unspecified (principal)
CPT/HCPCS: 71046

== ENCOUNTER → 2019-09-22 | Outpatient (CLI) | payer OTHER ==
--- NOTE | 2019-09-22 13:24 | KCIC ---
EYE FOR FOREIGN BODY History: Previous metal to the eye, screening prior to MRI Comparison: None. Findings: 2 views of the orbits are submitted. No metallic foreign body is identified in region of orbits. Impression: 1. There is no metallic foreign body in the region of orbits. Electronically signed by: Chandana Navarro MD (09/22/2019 1:22 PM) [id number]
--- NOTE | 2019-09-22 15:13 | KCIC ---
MR of the right shoulder HISTORY: Right shoulder pain in recent months. No known injury. TECHNIQUE: Routine multiplanar sequences are obtained. FINDINGS: The acromioclavicular joint is degenerative, with mild undersurface mass effect due to small undersurface osteophytes particularly at the outer clavicle. No evidence of rotator cuff tear. No significant subdeltoid bursal effusion. No significant glenohumeral joint effusion. Motion degradation limits evaluation of the labrum. Heterogeneous signal within the anteroinferior labrum, with small adjacent para labral cysts, compatible with tear. Tear also appears to extend into the posteroinferior labrum. At least degeneration of the superior labrum. Biceps tendon is intact. No acute fracture or aggressive bone destruction. IMPRESSION: 1. Anteroinferior through posteroinferior labral tear, with anteroinferior para labral cysts. 2. Superior labral degeneration or degenerative tear. 3. Electronically signed by: King Arora MD (09/22/2019 3:10 PM) [facility]
== END | disposition home or self-care (01) ==
LOC: KCIC MRI 13:01
PROVIDERS: ATTEND Orthopaedic Surgery
DX: S43.491A Other sprain of right shoulder joint, initial encounter (principal); M25.711 Osteophyte, right shoulder; X58.XXXA Exposure to other specified factors, initial encounter; Y93.89 Activity, other specified; Y92.89 Other specified places as the place of occurrence of the external cause; Y99.8 Other external cause status
CPT/HCPCS: 70030; 73221

== ENCOUNTER 2020-06-06 15:43 | Emergency (ER) | payer MEDICARE ==
[~2020-06-06] VITALS: Ht 182.9 cm; Wt 71.0 kg
[2020-06-06 16:25] VITALS: BP 138/88
--- NOTE | 2020-06-06 18:22 | PHYS DOC ---
Past Medical History Past Medical History: COPD, Pneumonia, Other Additional Past Medical Histor: chest pain,emphysema Past Surgical History: Other Additional Past Surgical Histo: hernia, left finger amputation Smoking Status: Former Smoker Alcohol Use: Occasionally Drug Use: None General Adult EDM: Chief Complaint: LACERATION/AVULSION HPI: HPI: Patient is a 55 year old male who presents with acute injury to the right ring finger. Patient was doing some work at his home and had a piece of sheet metal caused a laceration on the medial portion of the fourth digit along the MCP surface. Patient denies any change in strength or range of motion other than that limited by pain. He reports no other injury. He denied any other complaints including chest pain, shortness of breath, change in cough, fever or chills. Review of Systems: Review of Systems: Constitutional: Denies fever or chills. [] Eyes: Denies change in visual acuity. [] HENT: Denies nasal congestion or sore throat. [] Respiratory: Denies cough or shortness of breath. [] Cardiovascular: Denies chest pain or edema. [] GI: Denies abdominal pain, nausea, vomiting, bloody stools or diarrhea. [] : Denies dysuria. [] Musculoskeletal: Denies back pain or joint pain. [] Integument: Denies rash. [] [] Heart Score: Risk Factors: Risk Factors: DM, Current or recent (<one month) smoker, HTN, HLP, family history of CAD, obesity. Risk Scores: Score 0 - 3: 2.5% MACE over next 6 weeks - Discharge Home Score 4 - 6: 20.3% MACE over next 6 weeks - Admit for Clinical Observation Score 7 - 10: 72.7% MACE over next 6 weeks - Early Invasive Strategies Allergies: Allergies: Allergies Coded Allergies Type Severity Reaction Last Updated Verified No Known Drug Allergies 12/22/14 No Physical Exam: PE: Constitutional: Well developed, well nourished, no acute distress, non-toxic appearance. [] Neck: Normal range of motion, no tenderness, supple, no stridor. [] Cardiovascular:Heart rate regular rhythm, no murmur [] Lungs & Thorax: Bilateral breath sounds clear to auscultation [] Skin: Warm, dry, no erythema, no rash. 3 cm J-shaped laceration of the fourth digit of the right upper extremity at the PIP, no capsule involvement, tendon injury or extensor retinaculum injury is identified. Patient with full range of motion and strength. [] Current Patient Data: Vital Signs: Vital Signs Date Time Temp Pulse Resp B/P (MAP) Pulse Ox O2 Delivery O2 Flow Rate FiO2 06/06/20 16:25 97.9 75 16 138/88 (105) 97 Room Air 97.9 EKG: EKG: [] Radiology/Procedures: Radiology/Procedures: Indication: Laceration fourth digit Procedure: The patient was placed in the appropriate position and anesthesia around the none none. The area was then cleaned prior to draping. The wound was cleaned using water and soap, the wound was inspected and no evidence for laceration of deep structures is identified.. The laceration was closed using Dermabond. No additional Lacs are identified. The wound area was then dressed with Band-Aid. Total repaired wound length: 3 cm. Other Items: None The patient tolerated the procedure well. Complications: None.[] Course & Med Decision Making: Course & Med Decision Making Pertinent Labs and Imaging studies reviewed. (See chart for details) 0622-patient was seen and examined. Laceration was repaired. Patient tolerated procedure well. I discussed reasons to return, treatment plan and need for follow-up. [] Dragon Disclaimer: Dragon Disclaimer: This electronic medical record was generated, in whole or in part, using a voice recognition dictation system. Departure Departure Impression: Primary Impression: Laceration of finger of right hand Qualified Codes: S61.214A - Laceration without foreign body of right ring finger without damage to nail, initial encounter Disposition: 01 HOME, SELF-CARE Condition: IMPROVED Referrals: ANDREW GUADALUPE PA-C (PCP) Patient Instructions: Laceration Care, Adult Justicifation of Admission Dx: Justifications for Admission: Justification of Admission Dx: N/A ANDREA BALTAZAR MD Jun 06, 2020 18:22
== END 2020-06-06 18:45 | disposition home or self-care (01) ==
LOC: ER 15:43
DX: S61.214A Laceration without foreign body of right ring finger without damage to nail, initial encounter (principal); J44.9 Chronic obstructive pulmonary disease, unspecified; Z98.890 Other specified postprocedural states; Z87.891 Personal history of nicotine dependence; W26.8XXA Contact with other sharp object(s), not elsewhere classified, initial encounter; Y93.9 Activity, unspecified; Y92.89 Other specified places as the place of occurrence of the external cause; Y99.8 Other external cause status
CPT/HCPCS: 12002; 99282

== ENCOUNTER → 2020-07-09 | Outpatient (CLI) | payer MEDICARE ==
--- NOTE | 2020-07-09 16:39 | KCIC ---
EXAM: CT low dose lung cancer screening. HISTORY: Cigarette smoking history. TECHNIQUE: Computed tomographic images of the chest were obtained without contrast. Multiplanar reformatting was performed. *One or more of the following individualized dose reduction techniques were utilized for this examination: 1. Automated exposure control. 2. Adjustment of the mA and/or kV according to patient size. 3. Use of iterative reconstruction technique. COMPARISON: 07/26/2016. FINDINGS: There is a 6 mm nodule with surrounding groundglass within the medial right upper lobe (series 6, image 84), new compared to the prior study. There is a 4 mm nodule within the lateral right middle lobe (series 6, image 207), increased compared to the prior study. There are few tiny peripheral and pleural-based nodular opacities measuring up to 2 mm within both lungs, likely benign based on size and location. There is emphysema with central bronchial wall thickening. There is pleural parenchymal scarring within the anterior medial right upper lobe, right middle lobe and lingula. There is no acute infiltrate, pleural effusion or pneumothorax. The heart is normal in size. There is calcified atherosclerotic plaque involving the thoracic aorta. There is stable calcification involving the trachea. There is no lymphadenopathy. There is no acute or suspicious finding involving the upper abdomen. There are degenerative changes involving the thoracic spine. There is no suspicious osseous lesion. IMPRESSION: 1. 6 mm and 4 mm right-sided pulmonary nodules, the larger of which is associated with a surrounding groundglass component and is new compared to the prior study. Lung RADS Category 4a: [address] follow-up is recommended. 2. Pulmonary emphysema with central bronchial wall thickening likely due to the sequela of bronchitis. There are scattered areas of pleural-parenchymal scarring. Electronically signed by: Cherie Cheng MD (07/09/2020 4:36 PM) [id number]
== END ==
LOC: KCIC CT 08:45
PROVIDERS: ATTEND Family Medicine
DX: Z12.2 Encounter for screening for malignant neoplasm of respiratory organs (principal); Z87.891 Personal history of nicotine dependence; J43.8 Other emphysema; J98.4 Other disorders of lung; M47.814 Spondylosis without myelopathy or radiculopathy, thoracic region; I70.0 Atherosclerosis of aorta
CPT/HCPCS: G0297

== ENCOUNTER → 2020-10-15 | Outpatient (CLI) | payer MEDICARE ==
[~2020-10-15] MED LIST changes: +PROM5SYR2 PO
--- NOTE | 2020-10-15 11:14 | KCIC ---
Noncontrast CT scan of the chest compared to low-dose screen exam dated July 092019 for lung nodule follow-up, COPD, smoking history. TECHNIQUE AND FINDINGS: Contiguous CT images are obtained from the thoracic inlet to the base of diap hragm. Sagittal and coronal reformations are evaluated. FINDINGS: Coronary artery calcification are present. Heart size within normal limits. Central airways are patent. Evaluation of the upper abdominal organs is limited by lack of IV contrast. No gross mor phologic abnormalities of the visualized upper abdominal organs are identified. No significant osseou s abnormalities are evident. There is emphysema. Saber-sheath trachea. Diffuse bronchial wall thicken ing consistent with chronic bronchitis. A few areas of patchy pleural parenchymal scarring are redemo nstrated. The previously seen 6 mm nodule associated with some surrounding ground glass opacity in th e anterior aspect the right upper lobe is smaller today with resolution of the groundglass inflammato ry component. This nodule measures 4 mm today. These changes are consistent with benign AP. The previ ously described 4 mm right middle lobe nodule is stable. There are a few other stable nodules, the la rgest which is in the medial aspect of the right lower lobe measuring 5 mm. No new lung nodules or ma sses are seen. No suspicious adenopathy is evident. IMPRESSION: 1. Decrease in size of the previously noted 6 mm right upper lobe pulmonary nodule with resolution of the adjacent groundglass inflammatory component. These findings are consistent with resolution of a benign process. 2. Multiple stable 3 to 5 mm nodules with no new lung nodules or masses identified. 3. Chronic changes of emphysema and chronic bronchitis. PQRS Compliance Statement: One or more of the following individualized dose reduction techniques were utilized for this examinat ion: 1. Automated exposure control 2. Adjustment of the mA and/or kV according to patient size 3. Use of iterative reconstruction technique Electronically signed by: Abdi Bob MD (10/15/2020 11:11 AM) [id number]
== END ==
LOC: KCIC CT 07:59
PROVIDERS: ATTEND Family Medicine
DX: J44.9 Chronic obstructive pulmonary disease, unspecified (principal); R93.89 Abnormal findings on diagnostic imaging of other specified body structures
CPT/HCPCS: 71250

== ENCOUNTER 2020-10-20 09:11 | Emergency (ER) | payer MEDICARE, OTHER ==
[~2020-10-20] VITALS: Ht 182.9 cm; Wt 71.3 kg
[~2020-10-20 09:11] MED LIST changes: -PROM5SYR2 PO
--- NOTE | 2020-10-20 09:59 | PHYS DOC ---
Past Medical History Past Medical History: COPD, Pneumonia, Other Additional Past Medical Histor: chest pain,emphysema Past Surgical History: Other Additional Past Surgical Histo: hernia, left finger amputation Smoking Status: Former Smoker Alcohol Use: Occasionally Drug Use: None General Adult EDM: Chief Complaint: MULTIPLE COMPLAINTS HPI: HPI: Patient is a 55 year old male with history of COPD, emphysema, previous smoker, who presents to the ED today complaining of waking up this morning feeling chills, mild backache, mild frontal headache, running a fever of 101, feeling nauseated, coughing and short of air. Patient also complaining of fatigue and body aches. Patient is also complaining of nasal congestion. Denies any chest pain. Denies anything specifically exacerbating or relieving his symptoms. Review of Systems: Review of Systems: Constitutional: Reports fever and chills HENT: Reports nasal congestion, sore throat. [] Respiratory: Reports cough and shortness of breath. [] Cardiovascular: Denies chest pain or edema. [] GI: Reports nausea. Denies abdominal pain, vomiting, bloody stools or diarrhea. [] : Denies dysuria. [] Musculoskeletal: Denies back pain or joint pain. [] Integument: Denies rash. [] Neurologic: Denies headache, focal weakness or sensory changes. [] Psychiatric: Denies depression or anxiety. [] Heart Score: Risk Factors: Risk Factors: DM, Current or recent (<one month) smoker, HTN, HLP, family history of CAD, obesity. Risk Scores: Score 0 - 3: 2.5% MACE over next 6 weeks - Discharge Home Score 4 - 6: 20.3% MACE over next 6 weeks - Admit for Clinical Observation Score 7 - 10: 72.7% MACE over next 6 weeks - Early Invasive Strategies Allergies: Allergies: Allergies Coded Allergies Type Severity Reaction Last Updated Verified No Known Drug Allergies 12/22/14 No Physical Exam: PE: Constitutional: Well developed, well nourished, no acute distress, non-toxic appearance. [] HENT: Normocephalic, atraumatic, bilateral external ears normal, oropharynx moist, no oral exudates, nose normal. [] Eyes: PERRLA, EOMI, conjunctiva normal, no discharge. [] Neck: Normal range of motion, no tenderness, supple, no stridor. [] Cardiovascular:Heart rate regular rhythm, no murmur [] Lungs & Thorax: Bilateral breath sounds clear to auscultation [] Abdomen: Bowel sounds normal, soft, no tenderness, no masses, no pulsatile masses. [] Skin: Warm, dry, no erythema, no rash. [] Back: No tenderness, no CVA tenderness. [] Extremities: No tenderness, no cyanosis, no clubbing, ROM intact, no edema. [] Neurologic: Alert and oriented X 3, normal motor function, normal sensory function, no focal deficits noted. [] Psychologic: Affect normal, judgement normal, mood normal. [] Current Patient Data: Vital Signs: Vital Signs Date Time Temp Pulse Resp B/P (MAP) Pulse Ox O2 Delivery O2 Flow Rate FiO2 10/20/20 09:25 98.9 96 18 136/94 (108) 97 Room Air 98.9 EKG: EK Interpreted by Dr. Lagos sinus rhythm heart rate 90 no STEMI [] Radiology/Procedures: Radiology/Procedures: []PROCEDURE: PORTABLE CHEST 1V XR CHEST 1V Clinical indications: Fever COMPARISON: September 10, 2019. Findings: No acute lung infiltrate or pleural effusion or pulmonary edema or lung mass or pneumothorax is seen. The heart size, pulmonary vasculature, mediastinum and both nikko are unremarkable. Impression: No acute radiographic abnormality is seen. Electronically signed by: Ashwini Thakkar MD (10/20/2020 10:59 AM) [id number] DICTATED and SIGNED BY: ASHWINI THAKKAR MD DATE: 10/20/20 [id number] Course & Med Decision Making: Course & Med Decision Making Pertinent Labs and Imaging studies reviewed. (See chart for details) This is a 55-year-old male patient presenting to the ED today complaining of waking up feeling sick. He states he had body aches, chills, fever 101, coughing, headache, backache, nausea, cough and shortness of breath. Also complaining of nasal congestion. Vitals on arrival to the ED temperature 98.9, heart rate 96, respiration 18 on room air, O2 sats 97% on room air, blood pressure 136/94. Chest x-ray interpreted by radiologist as negative for any acute findings, CBC, CMP, troponin, negative for any acute findings. EKG is negative. UA is negative. Patient was tested for COVID-19, results will be called to him when available. Was instructed to quarantine himself, supportive care measures also recommended including wearing a mask in public, maintaining good hand hygiene. Provided return precautions. OTC medications are recommended. Dragon Disclaimer: Dragmadi Disclaimer: This electronic medical record was generated, in whole or in part, using a voice recognition dictation system. Departure Departure Impression: Primary Impression: Person under investigation for COVID-19 Additional Impressions: Cough Fever Qualified Codes: R50.9 - Fever, unspecified Disposition: 01 DC HOME SELF CARE/HOMELESS Condition: STABLE Referrals: MARY CHAPMAN MD (PCP) follow up next week Patient Instructions: Cough, Adult, Fever, Adult Additional Instructions: You were evaluated in the emergency room, your chest x-ray is negative for any acute findings, your lab work was negative for any acute findings. You were tested for COVID-19. We will call you with results when available. In the meantime quarantine yourself, wear a mask if you go to any public place. Maintain good and hygiene. Follow up with your doctor next week Scripts Promethazine HCl/Codeine (Prometh-Codein 6.25-10 mg/5 ml) 5 Ml Syrup 5 ML PO PRN Q4-6HRS PRN for cough MDD 30 Milliliter(s), #120 ML 0 Refills Prov: RIAN BURGOS APRN 10/20/20 RIAN BURGOS APRN Oct 20, 2020 09:59
[2020-10-20 10:00] LABS: BASO % 0 % (0-3); EOS % 0 % (0-3); HEMATOCRIT 45.9 % (39.0-53.0); HEMOGLOBIN 15.9 g/dL (13.0-17.5); LYMPH # 0.6 x10^3/uL (1.0-4.8); LYMPH % 6 % (24-48); MEAN CORPUSCULAR HEMOGLOBIN 31 pg (25-35); MEAN CORPUSCULAR HGB CONC 35 g/dL (31-37); MEAN CORPUSCULAR VOLUME 90 fL (79-100); MONO # 0.9 x10^3/uL (0.0-1.1); MONO % 9 % (0-9); NEUT # 9.1 x10^3/uL (1.8-7.7); NEUT % 85 % (31-73); PLATELET COUNT 267 x10^3/uL (140-400); RED BLOOD COUNT 5.07 x10^6/uL (4.30-5.70); RED CELL DISTRIBUTION WIDTH 14.4 % (11.5-14.5); WHITE BLOOD COUNT 10.8 x10^3/uL (4.0-11.0)
[2020-10-20 10:12] LABS: CREATININE 1.3 mg/dL (0.7-1.3); GFR 56.9; POTASSIUM 4.2 mmol/L (3.5-5.1)
[2020-10-20 10:19] LABS: ALBUMIN 3.7 g/dL (3.4-5.0); ALBUMIN/GLOBULIN RATIO 1.2 (1.0-1.7); TOTAL BILIRUBIN 0.7 mg/dL (0.2-1.0); TOTAL PROTEIN 6.9 g/dL (6.4-8.2)
[2020-10-20 10:56] LABS: BILIRUBIN,URINE NEGATIVE (NEG); CLARITY,URINE CLEAR; COLOR,URINE YELLOW; NITRITE,URINE NEGATIVE (NEG); PH,URINE 7.5 (<5.0-8.0); PROTEIN,URINE NEGATIVE (NEG-TRACE); UROBILINOGEN,URINE 0.2 mg/dL (0.2 mg/dL)
--- NOTE | 2020-10-20 11:02 | RAD ---
XR CHEST 1V Clinical indications: Fever COMPARISON: September 10, 2019. Findings: No acute lung infiltrate or pleural effusion or pulmonary edema or lung mass or pneumothora x is seen. The heart size, pulmonary vasculature, mediastinum and both nikko are unremarkable. Impression: No acute radiographic abnormality is seen. Electronically signed by: Rory Thakkar MD (10/20/2020 10:59 AM) [id number]
[2020-10-20 11:03] LABS: AMPHETAMINE/METHAMPHETAMINE NEG (NEG); BARBITURATES NEG (NEG); BENZODIAZEPINES NEG (NEG); CANNABINOIDS POS (NEG); COCAINE NEG (NEG); METHADONE NEG (NEG); OPIATES NEG (NEG); PHENCYCLIDINE NEG (NEG)
[2020-10-20 11:12] LABS: BACTERIA,URINE 0 /HPF (0-FEW); RBC,URINE 0 /HPF (0-2); WBC,URINE OCC /HPF (0-4)
[2020-10-20 11:29] VITALS: BP 130/97
[2020-10-20] MEDS ORDERED: PROM5SYR2 PO (11:34)
--- NOTE | 2020-10-20 11:48 | EKG ---
[facility] [address] [place] [address] Test Date: 2020-10-20 Test Time: 09:25:01 Pat Name: KATIE HERNANDEZ Department: Room: Gender: M [employer]: : 1965 Requested By: RIAN BURGOS Order Number: [id number] Reading MD: Measurements Intervals [place] Rate: 90 P: -54 MO: 98 QRS: 66 QRSD: 90 T: 18 QT: 348 QTc: 430 Interpretive Statements SINUS RHYTHM NORMAL ECG RI6.02 No previous ECG available for comparison
--- NOTE | 2020-10-23 16:21 | NUR ---
IP: Informed pt of negative COVID results. Pt verbalized understanding.
== END 2020-10-20 11:44 | disposition home or self-care (01) ==
LOC: ER 09:11
DX: R05 Cough (principal); Z20.828 Contact with and (suspected) exposure to other viral communicable diseases; R50.9 Fever, unspecified; R51.9 Headache, unspecified; R06.02 Shortness of breath; J44.9 Chronic obstructive pulmonary disease, unspecified; F17.200 Nicotine dependence, unspecified, uncomplicated; Z98.890 Other specified postprocedural states
CPT/HCPCS: 36415; 71045; 80053; 80307; 81001; 82553; 83735; 83880; 84145; 84484; 85025; 93005; 99285; C9803; U0003

== ENCOUNTER → 2021-09-19 | Outpatient (CLI) | payer MEDICARE ==
[~2021-09-19] MED LIST changes: +PROM5SYR2 PO
--- NOTE | 2021-09-19 12:06 | KCIC ---
AP and Lateral Views of the Chest 09/19/2021 11:40 AM Indication: Reason: COPD EXACERBATION / Comparison: Chest radiograph October 20, 2020 Findings: Lungs are hyperinflated. No pneumothorax, pleural effusion, or focal infiltrate is seen. He art size is normal. No acute osseous changes are seen. IMPRESSION: Mild hyperinflation, likely relating to COPD given history. Overall stable radiographic a ppearance of the chest. Electronically signed by: Vivek Mendoza MD (09/19/2021 12:04 PM) [id number]
== END ==
LOC: KCIC 11:38
PROVIDERS: ATTEND Physician Assistant Medical
DX: J98.11 Atelectasis (principal); J44.1 Chronic obstructive pulmonary disease with (acute) exacerbation
CPT/HCPCS: 71046

== ENCOUNTER → 2022-02-06 | Outpatient (CLI) | payer MEDICARE ==
--- NOTE | 2022-02-06 14:00 | KCIC ---
EXAM: MRI RIGHT SHOULDER WITHOUT CONTRAST INDICATION: Right shoulder pain, chronic. COMPARISON: Right shoulder radiograph 01/31/2022 TECHNIQUE: Multiplanar, multisequence imaging of the right shoulder without contrast. FINDINGS: ROTATOR CUFF: The supraspinatus, infraspinatus, subscapularis, and teres minor tendons are intact. No rotator cuff muscle atrophy or edema. LABRUM: There is an anterior inferior labral tear with a paralabral cyst extending along the glenoid measuring about 1.5 x 0.6 cm. There is fraying of the superior labrum. BICEPS TENDON: The biceps tendon is intact and located. ACROMIOCLAVICULAR JOINT: Mild acromioclavicular degenerative joint disease. GLENOHUMERAL JOINT: Articular cartilage is intact. No acute fracture or marrow signal abnormality. Al ignment is normal. OTHER: No joint effusion or intra-articular body. Minimal edema in the subacromial-subdeltoid bursa. IMPRESSION: 1. Anterior inferior labral tear with a 1.5 cm paralabral cyst. Degenerative fraying of the superior labrum. 2. No rotator cuff tear. Electronically signed by: Alida Hartman MD (02/06/2022 1:57 PM) [id number]
== END ==
LOC: KCIC MRI 09:03
PROVIDERS: ATTEND Orthopaedic Surgery
DX: S43.431A Superior glenoid labrum lesion of right shoulder, initial encounter (principal); S43.491A Other sprain of right shoulder joint, initial encounter; M19.011 Primary osteoarthritis, right shoulder; X58.XXXA Exposure to other specified factors, initial encounter; Y93.89 Activity, other specified; Y92.89 Other specified places as the place of occurrence of the external cause; Y99.8 Other external cause status
CPT/HCPCS: 73221